=== PATIENT | male | born 1965 | race Caucasian/White ===

== ENCOUNTER 2018-09-03 08:12 | Emergency (ER) | payer OTHER ==
[~2018-09-03] VITALS: Ht 157.5 cm; Wt 113.4 kg
[2018-09-03] MEDS ORDERED: LACTATED RINGERS 1,000 ML IV ONE (08:22)
[2018-09-03] MEDS ORDERED: KETOROLAC 30 MG/ML VIAL IVP ONE (08:30)
--- NOTE | 2018-09-03 08:32 | ED Abdominal Pain ---
General Stated Complaint: R SIDE LOWER ABD PAIN Source of Information: Patient, Spouse Exam Limitations: No Limitations History of Present Illness Date Seen by Provider: Sep 03, 2018 Time Seen by Provider: 08:14 Initial Comments The patient presents to the ER by private conveyance with chief complaint of 45 minutes of pain in his right lower quadrant abdomen that radiates towards the midline and umbilicus. He had a similar pain to this yesterday lasted for about half an hour in the morning and went away spontaneously. He is not taking anything for the pain today. His last oral intake was at 7:15, one hour ago. He cannot have a bowel movement today which was is normal. His seems to think he did have a bowel movement yesterday but he does not recall that being the case. No diarrhea or recent black tarry stools. No history of colonoscopy. He has had a umbilical hernia repair historically. No fevers chills. He has had some nausea but no vomiting. He does have a history of kidney stones but is not having any back pain. He's not had any rash itching or burning on the skin. No recent trauma. No dysuria or dyspareunia. 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 No history of hypertension, hypothyroidism, coronary disease. He does have hyperlipidemia. Allergies and Home Medications Allergies Coded Allergies: morphine (Verified Adverse Reaction, Unknown, N/V, 09/03/18) Patient Home Medication List Home Medication List Reviewed: Yes Review of Systems Review of Systems Constitutional: No chills, No fever, No malaise, No weakness EENTM: No Blurred Vision, No Double Vision Respiratory: Denies Cough, Denies Shortness of Air Cardiovascular: Denies Chest Pain, Denies Edema, Denies Lightheadedness Gastrointestinal: See HPI; Denies Abdomen Distended; Abdominal Pain; Denies Constipated, Denies Diarrhea; Nausea; Denies Poor Appetite, Denies Poor Fluid Intake, Denies Vomiting Genitourinary: Denies Burning, Denies Discharge Musculoskeletal: No back pain, No joint pain Past Chlkdrj-Kbmtej-Trlpok Hx Patient Social History Alcohol Use: Denies Use Recreational Drug Use: No Smoking Status: Never a Smoker Recent Foreign Travel: No Contact w/Someone Who Travel: No Physical Exam Vital Signs Vital Signs - First Documented 09/03/18 08:44 Temp 95.9 Pulse 67 Resp 18 B/P (MAP) 170/111 (130) Pulse Ox 95 O2 Delivery Room Air Capillary Refill : Height/Weight/BMI Height: '" Weight: lbs. oz. kg; BMI Method: General Appearance: WD/WN, mild distress HEENT: PERRL/EOMI, normal ENT inspection, pharynx normal Respiratory: lungs clear, normal breath sounds, no respiratory distress, no accessory muscle use Cardiovascular: normal peripheral pulses, regular rate, rhythm, no edema Peripheral Pulses: 2+ Radial Pulses (R), 2+ Radial Pulses (L) Gastrointestinal: soft, abnormal bowel sounds (quiescent), guarding (right lower quadrant); No rebound; tenderness (right lower quadrant over McBurney's point. Negative for Ochoa sign. Negative for Rovsing sign. Positive psoas sign) Progress/Results/Core Measures Results/Orders Lab Results Laboratory Tests Test 09/03/18 08:25 09/03/18 08:55 Range/Units White Blood Count 6.9 4.3-11.0 10^3/uL Red Blood Count 6.05 H 4.35-5.85 10^6/uL Hemoglobin 17.9 H 13.3-17.7 G/DL Hematocrit 50 40-54 % Mean Corpuscular Volume 83 80-99 FL Mean Corpuscular Hemoglobin 30 25-34 PG Mean Corpuscular Hemoglobin Concent 36 32-36 G/DL Red Cell Distribution Width 14.3 10.0-14.5 % Platelet Count 161 130-400 10^3/uL Mean Platelet Volume 11.0 H 7.4-10.4 FL Neutrophils (%) (Auto) 70 42-75 % Lymphocytes (%) (Auto) 18 12-44 % Monocytes (%) (Auto) 8 0-12 % Eosinophils (%) (Auto) 3 0-10 % Basophils (%) (Auto) 0 0-10 % Neutrophils # (Auto) 4.8 1.8-7.8 X 10^3 Lymphocytes # (Auto) 1.2 1.0-4.0 X 10^3 Monocytes # (Auto) 0.6 0.0-1.0 X 10^3 Eosinophils # (Auto) 0.2 0.0-0.3 10^3/uL Basophils # (Auto) 0.0 0.0-0.1 10^3/uL Sodium Level 139 135-145 MMOL/L Potassium Level 4.0 3.6-5.0 MMOL/L Chloride Level 107 98-107 MMOL/L Carbon Dioxide Level 23 21-32 MMOL/L Anion Gap 9 5-14 MMOL/L Blood Urea Nitrogen 14 7-18 MG/DL Creatinine 1.37 H 0.60-1.30 MG/DL Estimat Glomerular Filtration Rate 54 BUN/Creatinine Ratio 10 Glucose Level 125 H 70-105 MG/DL Calcium Level 10.6 H 8.5-10.1 MG/DL Corrected Calcium 10.4 H 8.5-10.1 MG/DL Total Bilirubin 1.2 H 0.1-1.0 MG/DL Aspartate Amino Transf (AST/SGOT) 66 H 5-34 U/L Alanine Aminotransferase (ALT/SGPT) 73 H 0-55 U/L Alkaline Phosphatase 92 40-136 U/L Total Protein 6.5 6.4-8.2 GM/DL Albumin 4.3 3.2-4.5 GM/DL My Orders Orders - REECE SOL Ct Abd/Pelv W (Appendicitis) (09/03/18 08:22) Cbc With Automated Diff (09/03/18 08:22) Comprehensive Metabolic Panel (09/03/18 08:22) Drug Screen Stat (Urine) (09/03/18 08:22) Ua Culture If Indicated (09/03/18 08:22) Blood Culture (09/03/18 08:22) Saline Lock/Iv-Start (09/03/18 08:22) Lactated Ringers (Lr 1000 Ml Iv Solution (09/03/18 08:22) Lactic Acid Analyzer (09/03/18 08:22) Ketorolac Injection (Toradol Injection) (09/03/18 08:30) Iohexol Injection (Omnipaque 350 Mg/Ml 1 (09/03/18 08:45) Contrast Received (Contrast Received) (09/03/18 08:45) Ns (Ivpb) (Sodium Chloride 0.9% Ivpb Bag (09/03/18 08:45) Ceftriaxone For Iv Use (Rocephin For I (09/03/18 09:00) Medications Given in ED Current Medications Medications Dose Ordered Sig/Henrietta Route Start Time Stop Time Status Last Admin Dose Admin Iohexol 100 ml ONCE ONCE IV 09/03/18 08:45 09/03/18 08:46 DC 09/03/18 08:44 100 ML Lactated Ringer's 1,000 ml @ 0 mls/hr Q0M ONCE IV 09/03/18 08:22 09/03/18 08:26 DC 09/03/18 08:32 1,000 MLS/HR Sodium Chloride 100 ml ONCE ONCE IV 09/03/18 08:45 09/03/18 08:46 DC 09/03/18 08:44 80 ML Vital Signs/I&O 09/03/18 08:44 Temp 95.9 Pulse 67 Resp 18 B/P (MAP) 170/111 (130) Pulse Ox 95 O2 Delivery Room Air Progress Progress Note : Time: 08:32 Progress Note Plan to give him a liter of LR, Toradol. He says his nausea is resolved and doesn't want anything for that right now. We'll get a CT of his abdomen as well as blood. We'll go ahead and obtain blood cultures. Appendix versus bowel obstruction versus diverticulitis versus lymphadenitis versus kidney stone versus other. Diagnostic Imaging Diagonstic Imaging: CT (with contrast) Plain Films/CT/US/NM/MRI: abdomen, pelvis Comments NAME: [facility] REC#: [id number] PT STATUS: REG ER : 1965 PHYSICIAN: REECE SOL MD ADMIT DATE: 09/03/18/ER Draft Date of Exam:09/03/18 CT ABD/PELV W (APPENDICITIS) PROCEDURE: CT abdomen and pelvis with contrast, rule out appendicitis. TECHNIQUE: Multiple contiguous axial images were obtained through the abdomen and pelvis after the administration of intravenous contrast. INDICATION: Periumbilical pain. COMPARISON: No prior studies are available for comparison. FINDINGS: The lung bases are clear. The liver demonstrates mild generalized low density consistent with hepatic steatosis. No discrete liver mass is identified. The gallbladder is unremarkable. No biliary duct dilatation is seen. The pancreas and spleen are unremarkable. No adrenal mass is detected. The left kidney does contain a nonobstructing calculus in the mid region measuring 4 mm in size. No hydronephrosis is seen. There is mild right-sided hydronephrosis. There is a 4 mm calculus in the proximal right ureter just beyond the UPJ. The remainder of the right ureter is normal in caliber. No bladder calculi are seen. The aorta is non-aneurysmal. The appendix is unremarkable. The bowel loops are normal in caliber. No obstruction is seen. There is no ascites. The ascending colon and cecum are more midline in the abdomen. No abdominal or pelvic lymphadenopathy is seen. IMPRESSION: 1. Hepatic steatosis. 2. Nonobstructing left renal calculus. There is also a 4 mm calculus in the proximal right ureter producing mild hydroureteronephrosis. 3. No CT evidence of acute appendicitis. Dictated on workstation # [id number] Dict: 09/03/18 [id number] Trans: 09/03/18 0904 JEANINE [id number] Interpreted by: ADDIE PAYTON MD Electronically signed by: Reviewed: Reviewed by Me Departure Impression Primary Impression: Calculus of proximal right ureter Disposition: HOME, SELF-CARE Condition: Stable Departure-Patient Inst. Decision time for Depature: 09:15 Referrals: EDER LIU MD (PCP) Primary Care Physician RACHEL PATEL MD Patient Instructions: Kidney Stones (DC) Add. Discharge Instructions: Drink lots of fluids. Caffeine is encouraged. Use the Flomax daily until you pass the stone. Strain all your urine to see if you can note the time that you passed the stone. Follow-up with Dr. Patel, urology outpatient by calling his clinic. Is not unusual to have some blood-tinged urine or pain up to a day or 2 after passing a stone. If you're having pain you can use Tylenol and ibuprofen 800 mg every 8 hours. If you have breakthrough pain you can use 1-2 tablets of hydrocodone every 6 hours but will cause constipation and drowsiness. Start taking the Keflex tomorrow twice a day for the next week to cover for a bladder infection. Scripts Tamsulosin HCl (Flomax) 0.4 Mg Cap 0.4 MG PO DAILY for 7 Days, #7 CAP 0 Refills Prov: REECE SOL 09/03/18 Cephalexin (Cephalexin) 500 Mg Tablet 500 MG PO BID for 7 Days, #14 TAB 0 Refills Prov: REECE SOL 09/03/18 Hydrocodone Bit/Acetaminophen (Hydrocodone/Acetaminophen 5/325mg Tablet) 1 Tab Tab 1-2 EACH PO Q6H for PAIN-MODERATE MDD 10, #12 TAB 0 Refills Prov: REECE SOL 09/03/18 Ondansetron (Ondansetron Odt) 4 Mg Tab.rapdis 4 MG PO Q6H PRN for NAUSEA/VOMITING, #8 TAB 0 Refills Prov: REECE SOL 09/03/18 Work/School Note: Work Release Form Date Seen in the Emergency Department: Sep 03, 2018 Return to Work: Sep 03, 2018 Restrictions: No Restrictions Copy Copies To 1: RACHEL PATEL MD, TITUS J Sep 03, 2018 08:32
--- NOTE | 2018-09-03 08:33 | NUR ---
Pt reports pain has subsided at this time and does not want toradol at this time. Will continue to monitor.
[2018-09-03 08:37] LABS: BASOPHILS % (AUTO) 0 % (0-10); EOSINOPHILS # (AUTO) 0.2 10^3/uL (0.0-0.3); EOSINOPHILS % (AUTO) 3 % (0-10); HEMATOCRIT 50 % (40-54); HEMOGLOBIN 17.9 G/DL (13.3-17.7); LYMPHOCYTES # (AUTO) 1.2 X 10^3 (1.0-4.0); LYMPHOCYTES % (AUTO) 18 % (12-44); MEAN CORPUSCULAR HEMOGLOBIN 30 PG (25-34); MEAN CORPUSCULAR HGB CONC 36 G/DL (32-36); MEAN CORPUSCULAR VOLUME 83 FL (80-99); MONOCYTES # (AUTO) 0.6 X 10^3 (0.0-1.0); MONOCYTES % (AUTO) 8 % (0-12); NEUTROPHILS # (AUTO) 4.8 X 10^3 (1.8-7.8); NEUTROPHILS % (AUTO) 70 % (42-75); PLATELET COUNT 161 10^3/uL (130-400); RED CELL DISTRIBUTION WIDTH 14.3 % (10.0-14.5); WHITE BLOOD COUNT 6.9 10^3/uL (4.3-11.0)
[2018-09-03] MEDS ORDERED: IOHEXOL 350 MG/ML 100 ML (OMNIPAQUE 350) VIAL IV ONE (08:45)
[2018-09-03] MEDS ORDERED: RECEIVED CONTRAST (Hold Metformin) IV SCH (08:45)
[2018-09-03] MEDS ORDERED: NS 100 ML (IVPB) BAG IV ONE (08:45)
[2018-09-03 08:55] LABS: ALBUMIN 4.3 GM/DL (3.2-4.5); BILIRUBIN,TOTAL 1.2 MG/DL (0.1-1.0); CALCIUM 10.6 MG/DL (8.5-10.1); CREATININE SERUM 1.37 MG/DL (0.60-1.30); TOTAL PROTEIN 6.5 GM/DL (6.4-8.2)
[2018-09-03] MEDS ORDERED: cefTRIAXone FOR IV USE 1,000 MG in WATER (STERILE) FOR INJECTION 10 ML IV ONE (09:00)
[2018-09-03 09:03] LABS: BILIRUBIN,URINE NEGATIVE (NEGATIVE); CLARITY,URINE CLEAR; COLOR,URINE YELLOW; GLUCOSE, URINE (UA) NEGATIVE (NEGATIVE); KETONES,URINE NEGATIVE (NEGATIVE); LEUKOCYTE ESTERASE ,URINE 1+ (NEGATIVE); NITRITE,URINE NEGATIVE (NEGATIVE); PH,URINE 5 (5-9); PROTEIN,URINE 2+ (NEGATIVE); UROBILINOGEN,URINE 1 MG/DL (NORMAL)
--- NOTE | 2018-09-03 09:04 | Diagnostic Imaging Report ---
PROCEDURE: CT abdomen and pelvis with contrast, rule out appendicitis. TECHNIQUE: Multiple contiguous axial images were obtained through the abdomen and pelvis after the administration of intravenous contrast. INDICATION: Periumbilical pain. COMPARISON: No prior studies are available for comparison. FINDINGS: The lung bases are clear. The liver demonstrates mild generalized low density consistent with hepatic steatosis. No discrete liver mass is identified. The gallbladder is unremarkable. No biliary duct dilatation is seen. The pancreas and spleen are unremarkable. No adrenal mass is detected. The left kidney does contain a nonobstructing calculus in the mid region measuring 4 mm in size. No hydronephrosis is seen. There is mild right-sided hydronephrosis. There is a 4 mm calculus in the proximal right ureter just beyond the UPJ. The remainder of the right ureter is normal in caliber. No bladder calculi are seen. The aorta is non-aneurysmal. The appendix is unremarkable. The bowel loops are normal in caliber. No obstruction is seen. There is no ascites. The ascending colon and cecum are more midline in the abdomen. No abdominal or pelvic lymphadenopathy is seen. IMPRESSION: 1. Hepatic steatosis. 2. Nonobstructing left renal calculus. There is also a 4 mm calculus in the proximal right ureter producing mild hydroureteronephrosis. 3. No CT evidence of acute appendicitis. Dictated by: Dictated on workstation # [id number]
--- NOTE | 2018-09-03 09:05 | NUR ---
Blood cultures cancelled by Dr. Donald.
[2018-09-03] MEDS ORDERED: ONDA4TAB11 PO (09:12)
[2018-09-03] MEDS ORDERED: CEPH500T PO (09:12)
[2018-09-03] MEDS ORDERED: ACHD5005 PO (09:12)
[2018-09-03] MEDS ORDERED: TAMS0.4C98 PO (09:12)
[2018-09-03 09:18] LABS: AMPHETAMINE SCREEN, URINE NEGATIVE (NEGATIVE); BARBITURATE SCREEN URINE NEGATIVE (NEGATIVE); BENZODIAZEPINES SCREEN URINE NEGATIVE (NEGATIVE); CANNABINOID SCREEN, URINE NEGATIVE (NEGATIVE); COCAINE SCREEN URINE NEGATIVE (NEGATIVE); METHADONE STAT NEGATIVE (NEGATIVE); METHAMPHETAMINE SCREEN URINE S POSITIVE (NEGATIVE); OPIATE SCREEN URINE NEGATIVE (NEGATIVE); OXYCODONE STAT NEGATIVE (NEGATIVE); PROPOXYPHENE STAT NEGATIVE (NEGATIVE); TRICYCLIC ANTIDEPRESSANTS SCRE NEGATIVE (NEGATIVE)
[2018-09-03 09:24] LABS: BACTERIA,URINE TRACE /HPF; CALCIUM OXALATE CRYSTALS,UR RARE /LPF; RBC,URINE >100 /HPF; SQUAMOUS EPITHELIAL CELL,UR 0-2 /HPF; WBC,URINE 0-2 /HPF
[2018-09-03 09:55] VITALS: BP 162/105
== END 2018-09-03 09:50 | disposition home or self-care (01) ==
LOC: EDUNIT# 08:12 → ER 08:13
DX: N13.2 Hydronephrosis with renal and ureteral calculous obstruction (principal); Z88.5 Allergy status to narcotic agent; Z87.442 Personal history of urinary calculi
CPT/HCPCS: 36415; 74177; 80053; 80306; 81000; 85025

== ENCOUNTER → 2018-09-04 | Outpatient (CLI) | payer OTHER ==
[~2018-09-04] MED LIST: ACHD5005 PO; CEPH500T PO; ONDA4TAB11 PO; TAMS0.4C98 PO
--- NOTE | 2018-09-04 15:53 | Diagnostic Imaging Report ---
EXAMINATION: Supine abdomen at 02:40 p.m. INDICATION: Right-sided pain. FINDINGS: Two supine views were obtained. The CT abdomen/pelvis exam of 09/03/2018 noted a 4 mm calculus in the proximal right ureter producing mild hydroureteronephrosis. That finding is again visualized and does not seem to have changed significantly in position. The 4 mm nonobstructive calculus within the left kidney noted previously is also again visualized and no different. There is no other pathological calcification evident. The overall appearance of the abdomen itself is otherwise unchanged. IMPRESSION: 1. The obstructive calculus within the right ureter noted on the prior exam is again visualized and does not appear to have changed significantly in position. 2. The nonobstructive calculus within the left kidney seen previously is also stable. Dictated by: Dictated on workstation # [id number]
== END ==
LOC: RAD 14:32
PROVIDERS: ATTEND Urology
DX: N20.2 Calculus of kidney with calculus of ureter (principal)
CPT/HCPCS: 74018

== ENCOUNTER 2018-09-09 05:38 | Outpatient (CLI) | payer OTHER ==
[~2018-09-09] VITALS: Ht 188 cm; Wt 113.4 kg
[2018-09-09] MEDS ORDERED: ALLO300T2 PO (12:05)
[2018-09-09] MEDS ORDERED: FINA1TAB PO (12:05)
[2018-09-10] MEDS ORDERED: PHEN-640 PO (12:55)
[2018-09-10] MEDS ORDERED: CIPR-225 PO (12:55)
== END 2018-09-09 12:19 ==
LOC: PREOP 05:38
PROVIDERS: ATTEND Urology
DX: Z01.818 Encounter for other preprocedural examination (principal)

== ENCOUNTER 2018-09-10 07:42 | Day surgery (SDC) | payer OTHER ==
[~2018-09-10] VITALS: Ht 188 cm; Wt 113.4 kg
[~2018-09-10 07:42] MED LIST changes: +ALLO300T2 PO; +FINA1TAB PO
[2018-09-10 08:00] VITALS: BP 128/84
[2018-09-10] MEDS ORDERED: cefTRIAXone FOR IV USE 1,000 MG in WATER (STERILE) FOR INJECTION 10 ML IV ONE (08:15)
--- NOTE | 2018-09-10 08:31 | Progress Note-Pre Operative ---
Pre-Operative Progress Note H&P Reviewed The H&P was reviewed, patient examined and no changes noted. Date Seen by Provider: Sep 10, 2018 Time Seen by Provider: 08:30 Date H&P Reviewed: Sep 10, 2018 Time H&P Reviewed: 08:30 Pre-Operative Diagnosis: RT URETERAL AND LT RENAL STONES RACHEL PATEL MD Sep 10, 2018 08:31
[2018-09-10] MEDS ORDERED: LIDOCAINE PF 2% 5 ML (XYLOCAINE) VIAL ONE (08:38)
[2018-09-10] MEDS ORDERED: proPOfol 200 MG/20 ML (DIPRIVAN) VIAL IV ONE ×2 (08:38→11:28)
[2018-09-10] MEDS ORDERED: MIDAZOLAM 2 MG/2 ML (VERSED) VIAL ONE (08:38)
[2018-09-10] MEDS ORDERED: fentaNYL INJECTION 100 MCG/2 ML AMP ONE (08:38)
[2018-09-10] MEDS ORDERED: DEXAMETHASONE 10 MG/ML (DECADRON) 1 ML VIAL ONE (08:38)
[2018-09-10] MEDS ORDERED: ONDANSETRON 4 MG/2 ML (SDV) Z0FRAN ONE ×2 (08:38→11:03)
[2018-09-10] MEDS ORDERED: FAMOTIDINE 20MG/2ML IV (PEPCID) ONE (08:40)
[2018-09-10] MEDS ORDERED: CATHETER FLUSH 10 ML SYR IV PRN (08:45)
[2018-09-10] MEDS ORDERED: SEVOFLURANE (ULTANE) 15 ML INHAL SOLN ONE ×4 (08:46→11:03)
--- NOTE | 2018-09-10 09:40 | Diagnostic Imaging Report ---
EXAMINATION: Supine abdomen at 812 hours. INDICATION: Nephrolithiasis. FINDINGS: The prior exam of 09/04/2018 noted a small obstructive calculus in the midportion of the right ureter. There is a similar-appearing density in this same region on this exam. The nonobstructive calculus overlying the inferior pole of the left kidney seen previously is unchanged. No new abnormality has developed. IMPRESSION: The obstructive calculus within the right ureter seen previously still appears to be present and does not appear to have changed significantly in position. Dictated by: Dictated on workstation # [id number]
[2018-09-10] MEDS ORDERED: GLYCOPYRROLATE 0.2 MG/ML (ROBINUL) 2 ML VIAL ONE (11:21)
[2018-09-10] MEDS ORDERED: NEOSTIGMINE 1 MG/ML 5 ML SYRINGE ONE (11:21)
[2018-09-10] MEDS ORDERED: ROCURONIUM 10 MG/ML 5 ML SYRINGE IV ONE (11:23)
[2018-09-10] MEDS ORDERED: fentaNYL INJECTION 100 MCG/2 ML AMP IVP ONE (11:45)
[2018-09-10] MEDS ORDERED: ONDANSETRON 4 MG/2 ML (SDV) Z0FRAN IVP PRN (11:45)
[2018-09-10] MEDS ORDERED: PROMETHAZINE INJ 25 MG/ML (PHENERGAN) AMP IVP ONE (11:45)
--- NOTE | 2018-09-10 11:53 | Progress Note-Post Operative ---
Post-Operative Progess Note Surgeon (s)/Registered Nurse Renal (s) Surgeon RACHEL PATEL MD Registered Nurse Renal: NONE Pre-Operative Diagnosis RT URETERAL AND LT RENAL STONES Post-Operative Diagnosis SAME Procedure & Operative Findings Date of Procedure 09/10/18 Procedure Performed/Findings RT URETEROSCOPY, STENT, RETROGRADE UROGRAM, AND RT ESWL Anesthesia Type GENERAL Estimated Blood Loss Estimated blood loss (mL): NONE Specimens/Packing Specimens Removed NONE Packing: NONE RACHEL PATEL MD Sep 10, 2018 11:53
--- NOTE | 2018-09-10 11:55 | Discharge Inst-Urology ---
Discharge Inst-Urology Discharge Medications New, Converted, or Re-newed RX: RX on Chart Patient Instructions/Follow Up Plan Please make appointment to been seen in office in 2 weeks. KUB prior to it KUB on way home Post ESWL instructions Increase oral fluids for 48 hours and then as needed. Diet and Activity as tolerated. If questions or concerns contact your physician Or seek help at emergency department. RACHEL PATEL MD Sep 10, 2018 11:55
[2018-09-10 12:40] VITALS: BP 172/87
[2018-09-10] MEDS ORDERED: CIPR-225 PO (12:55)
[2018-09-10] MEDS ORDERED: PHEN-640 PO (12:55)
[2018-09-10 13:10] VITALS: BP 123/73
[2018-09-10 13:40] VITALS: BP 129/72
[2018-09-10 14:15] VITALS: BP 129/72
--- NOTE | 2018-09-10 14:46 | Diagnostic Imaging Report ---
EXAMINATION: Supine abdomen at 2:02 p.m. INDICATION: Post ESWL. FINDINGS: The exam performed earlier today suggested that there is still a small calcification overlying the right ureter. That finding is no longer visualized. The calcification overlying the inferior pole of the left kidney seen previously is unchanged. No new abnormality has developed otherwise. IMPRESSION: The calcification overlying the mid portion of the right kidney seen previously is not identified on this study. Dictated by: Dictated on workstation # [id number]
[2018-09-10] MEDS ORDERED: LACTATED RINGERS 1,000 ML IV PRN (14:47)
--- NOTE | 2018-09-10 14:49 | Anesthesia-General Post-Op ---
General Patient Condition Mental Status/LOC: Same as Preop Cardiovascular: Satisfactory Nausea/Vomiting: Absent Respiratory: Satisfactory Pain: Controlled Complications: Absent Post Op Complications Complications None Follow Up Care/Instructions Patient Instructions None needed. Anesthesia/Patient Condition Patient Condition Patient is doing well, no complaints, stable vital signs, no apparent adverse anesthesia problems. No complications reported per nursing. ANTIONETTE ZALDIVAR CRNA Sep 10, 2018 14:49
--- NOTE | 2018-09-10 18:48 | OPERATIVE REPORT ---
DATE OF SERVICE: 09/10/2018 PREOPERATIVE DIAGNOSES: 1. Right symptomatic ureteral stone with no progression and obstruction. 2. Left renal stone. POSTOPERATIVE DIAGNOSES: 1. Right symptomatic ureteral stone with no progression and obstruction. 2. Left renal stone. OPERATION PERFORMED: Right ureteroscopy, retrograde urogram, insertion of stent and ESWL. SURGEON: Jermaine Patel MD ANESTHESIA: General. COMPLICATIONS: None. DESCRIPTION OF PROCEDURE: The patient with right proximal ureteral stone and pain and obstruction with failure to pass spontaneously and the left renal asymptomatic stone. Under satisfactory general anesthesia, the patient in lithotomy position in the cystoscopy suite, genitalia were prepped and draped in the usual sterile fashion. Cystoscope was introduced in the bladder. The urethra was normal. The prostate was normal, not enlarged, but had a median bar. The bladder was entered. There were some trabeculations. Ureteric orifices normal except with sluggish efflux on the right side. Using the foroblique lens, I dilated the right ureteral orifice intramural portion to accommodate a 6.9 Palestinian semi-rigid ureteroscope; however, I could not go all the way to the proximal ureteral stone. This continued further attempt. I passed a ureteral catheter and because of the size of the stone that was not very well visualized by plain x-ray. I elected to do some contrast studies, so I passed a ureteral catheter to the stone. I injected some contrast and I could see the stone going back into the renal pelvis releasing the obstruction. I could see the stone as a filling defect in the right renal pelvis. I passed the ureteral catheter all the way to the UPJ. Then, I inserted a Xie catheter after removing the cystoscope, secured both catheters together, moved the patient to the ESWL table in a supine position. We localized the stone as a filling defect under fluoroscopy in the renal pelvis and delivered 2000 shocks at kV of 4. We could not see the filling defect anymore. We took precaution to make sure there is no other filling defect or obstruction along the ureter. I backed up the ureteral catheter for support. There were no radiopaque stones seen along the course of the ureter, especially at the previous site. I injected contrast. There was no filling defect anywhere in the ureter as well as the pelvis of the kidney. There was complete emptying and good peristalsis of the ureter as well as the renal pelvis. The system was emptying nicely. There was no sign of obstruction anymore. The catheters were then removed. The patient tolerated the procedure and anesthesia well and was sent to recovery room in stable condition after receiving 30 mg Toradol and 40 mg of Lasix IV. We will discuss with the patient later on the left renal stone if he wants to do it on the elective basis and after we consult with his insurance. Job ID: [id number] DocumentID: [id number] Dictated Date: 09/10/2018 12:00:22 Careers Counsellor Date: 09/10/2018 15:39:05 Dictated By: JERMAINE PATEL MD
== END 2018-09-10 14:20 | disposition home or self-care (01) ==
LOC: SDC 07:42
PROVIDERS: ATTEND Urology
DX: N20.1 Calculus of ureter (principal); N20.0 Calculus of kidney; Z11.2 Encounter for screening for other bacterial diseases; M10.9 Gout, unspecified; N40.0 Benign prostatic hyperplasia without lower urinary tract symptoms; L65.9 Nonscarring hair loss, unspecified; Z79.899 Other long term (current) drug therapy
CPT/HCPCS: 74018; 87081

== ENCOUNTER → 2018-09-24 | Outpatient (CLI) | payer OTHER ==
[~2018-09-24] MED LIST changes: +CIPR-225 PO; +PHEN-640 PO
--- NOTE | 2018-09-24 17:40 | Diagnostic Imaging Report ---
INDICATION: History of ureteral stone, post extracorporeal shockwave lithotripsy. TECHNIQUE: Two supine views of the abdomen at 03:04 p.m. CORRELATION STUDY: 09/10/2018. FINDINGS: Small calcification, 3 mm in size projects over the left renal silhouette approximately the 12th rib. Faint calcification interposed between the 11th and 12th rib may reflect a stone over the mid right kidney. No definitive calcification along the expected course of either ureter. Overlying bowel gas pattern unremarkable without evidence for obstruction. IMPRESSION: 1. No appreciable change in the left renal stone. Question of small right renal stone. No definitive calcification along the expected course of the ureters. Dictated by: Dictated on workstation # [id number]
== END ==
LOC: RAD 14:47
PROVIDERS: ATTEND Urology
DX: N20.2 Calculus of kidney with calculus of ureter (principal); Z98.890 Other specified postprocedural states
CPT/HCPCS: 74018

== ENCOUNTER → 2018-09-24 | Outpatient (CLI) | payer OTHER | LOC: LAB 15:51 | PROVIDERS: ATTEND Urology | DX: N20.2 Calculus of kidney with calculus of ureter (principal) ==

== ENCOUNTER → 2018-10-23 | Outpatient (CLI) | payer BC, OTHER ==
--- NOTE | 2018-10-23 19:31 | Diagnostic Imaging Report ---
INDICATION: Left flank pain. COMPARISON: Comparison made with prior examination from 09/24/2018. FINDINGS: The previously seen calcification projected over the lateral aspect of the left kidney is no longer appreciated. No new calcifications are appreciated. Bowel gas pattern is nonspecific. IMPRESSION: No definite residual renal calculi. Dictated by: Dictated on workstation # [id number]
--- NOTE | 2018-10-23 19:39 | Diagnostic Imaging Report ---
PROCEDURE: CT abdomen and pelvis without contrast. TECHNIQUE: Multiple contiguous axial images were obtained through the abdomen and pelvis without the use of intravenous contrast. Auto Exposure Controls were utilized during the CT exam to meet ALARA standards for radiation dose reduction. INDICATION: Left flank pain. COMPARISON: Comparison made with prior examination from 09/03/2018. FINDINGS: The heart size is normal. The lung bases are clear. The liver is normal in size without focal lesions. Gallbladder is unremarkable. There is no biliary ductal dilatation. Spleen is normal. The pancreas and adrenal glands are unremarkable. There is mild right hydronephrosis secondary to a 5 mm stone just below the right UPJ. There is a 4.5 mm stone in the distal left ureter a few centimeters proximal to the left UVJ. The aorta is nonaneurysmal. Bowel gas pattern is nonspecific. There is no free air. There are no focal inflammatory changes. There is no pelvic mass or adenopathy. The osseous structures are unremarkable. IMPRESSION: Bilateral ureteral stones. There is mild right hydronephrosis. There does not appear to be significant hydronephrosis on the left. Findings were conveyed directly to Dr. Gerber via telephone. Dictated by: Dictated on workstation # [id number]
== END ==
LOC: RAD 14:58
PROVIDERS: ATTEND Urology
DX: N13.2 Hydronephrosis with renal and ureteral calculous obstruction (principal)
CPT/HCPCS: 74018; 74176

== ENCOUNTER → 2018-10-24 | Outpatient (CLI) | payer BC ==
--- NOTE | 2018-10-24 14:43 | Diagnostic Imaging Report ---
INDICATION: Nephrolithiasis. COMPARISON: Comparison made with prior examination 10/23/2018. FINDINGS: The lung bases are clear. Bowel gas pattern is nonspecific. The recently described ureteral stones are not appreciated by plain film radiographs. No definite abnormal calcifications are appreciated. IMPRESSION: No definite abnormal calcifications appreciated. The previously described bilateral ureteral stones likely are not visible on plain film radiographs. Dictated by: Dictated on workstation # [id number]
== END ==
LOC: RAD 09:07
PROVIDERS: ATTEND Urology
DX: N20.0 Calculus of kidney (principal)
CPT/HCPCS: 74018

== ENCOUNTER → 2018-11-04 | Outpatient (CLI) | payer BC ==
--- NOTE | 2018-11-04 16:47 | Diagnostic Imaging Report ---
INDICATION: Bilateral ureteral stones. TIME OF EXAM: 04:29 p.m. Comparison is made with prior radiograph from 10/24/2018. There is a small calcific density lying just inferior to the right transverse process of L2 measuring 3 mm. This may represent a ureteral calculus. No other suspicious calcific densities along the course of ureters is seen. Pelvic calcifications are stable and likely represent phleboliths. Bowel gas pattern is unremarkable. IMPRESSION: 3 mm right abdominal calcification, perhaps ureteric. Study is otherwise unremarkable. Dictated by: Dictated on workstation # [id number]
== END ==
LOC: RAD 16:08
PROVIDERS: ATTEND Urology
DX: N20.1 Calculus of ureter (principal)
CPT/HCPCS: 74018

== ENCOUNTER 2018-11-10 09:09 | Outpatient (CLI) | payer BC ==
[~2018-11-10] VITALS: Ht 188 cm; Wt 113.4 kg
== END 2018-11-10 15:56 | disposition home or self-care (01) ==
LOC: PREOP 09:09
PROVIDERS: ATTEND Surgery
DX: Z01.818 Encounter for other preprocedural examination (principal)

== ENCOUNTER 2018-11-12 11:17 | Day surgery (SDC) | payer BC ==
[~2018-11-12] VITALS: Ht 188 cm; Wt 113.4 kg
--- OUTSIDE RECORDS SUMMARY | 2018-11-12 11:22 | XMS REPORT | Continuity of Care Document ---
Author Organization Unknown Address Unknown Allergies Active Description Code Type Severity Reaction Onset Reported/Identified Relationship to Patient Clinical Status Yes morphine [id number] Drug Allergy Unknown N/V 09/03/2018 Yes No Known Drug Allergies [id number] Drug Allergy Unknown N/A 09/09/2018 Medications There is no data. Problems Date Dx Coded Attending Type Code Diagnosis Diagnosed By 09/03/2018 REECE SOL MD, Ot N13.2 HYDRONEPHROSIS WITH RENAL AND URETERAL C 09/03/2018 REECE SOL MD Ot R10.31 RIGHT LOWER QUADRANT PAIN 09/03/2018 REECE SOL MD Ot Z87.442 PERSONAL HISTORY OF URINARY CALCULI 09/03/2018 REECE SOL MD Ot Z88.5 ALLERGY STATUS TO NARCOTIC AGENT STATUS 09/05/2018 REECE SOL MD, Ot N13.2 HYDRONEPHROSIS WITH RENAL AND URETERAL C 09/05/2018 REECE SOL MD Ot R10.31 RIGHT LOWER QUADRANT PAIN 09/05/2018 REECE SOL MD Ot Z87.442 PERSONAL HISTORY OF URINARY CALCULI 09/05/2018 REECE SOL MD Ot Z88.5 ALLERGY STATUS TO NARCOTIC AGENT STATUS 09/10/2018 RACHEL PATEL MD Ot N20.2 CALCULUS OF KIDNEY WITH CALCULUS OF URET 09/10/2018 RACHEL PATEL MD Ot Z01.818 ENCOUNTER FOR OTHER PREPROCEDURAL EXAMIN 09/10/2018 RACHEL PATEL MD Ot L65.9 NONSCARRING HAIR LOSS, UNSPECIFIED 09/10/2018 RACHEL PATEL MD Ot M10.9 GOUT, UNSPECIFIED 09/10/2018 RACHEL PATEL MD Ot N20.0 CALCULUS OF KIDNEY 09/10/2018 RACHEL PATEL MD, Ot N20.1 CALCULUS OF URETER 09/10/2018 RACHEL PATEL MD A Ot N40.0 BENIGN PROSTATIC HYPERPLASIA WITHOUT LOW 09/10/2018 JORGE JOE, RACHEL Pritchett Ot Z11.2 ENCOUNTER FOR SCREENING FOR OTHER BACTER 09/10/2018 JORGE JOE, RACHEL Pritchett Ot Z79.899 OTHER COUNTERINTELLIGENCE ANALYST (CURRENT) DRUG THERAPY 09/12/2018 JORGE JOE, RACHEL Pritchett Ot L65.9 NONSCARRING HAIR LOSS, UNSPECIFIED 09/12/2018 JORGE JOE, RACHEL Pritchett Ot M10.9 GOUT, UNSPECIFIED 09/12/2018 JORGE JOE, RACHEL Pritchett Ot N20.0 CALCULUS OF KIDNEY 09/12/2018 JORGE JOE, RACHEL Pritchett Ot N20.1 CALCULUS OF URETER 09/12/2018 JORGE JOE, RACHEL Pritchett Ot N40.0 BENIGN PROSTATIC HYPERPLASIA WITHOUT LOW 09/12/2018 JORGE JOE, RACHEL Pritchett Ot Z11.2 ENCOUNTER FOR SCREENING FOR OTHER BACTER 09/12/2018 RACHEL PATEL MD Ot Z79.899 OTHER COUNTERINTELLIGENCE ANALYST (CURRENT) DRUG THERAPY 09/16/2018 RACHEL PATEL MD Ot L65.9 NONSCARRING HAIR LOSS, UNSPECIFIED 09/16/2018 JORGE JOE, RACHEL Pritchett Ot M10.9 GOUT, UNSPECIFIED 09/16/2018 JORGE JOE, RACHEL Pritchett Ot N20.0 CALCULUS OF KIDNEY 09/16/2018 JORGE JOE, RACHEL Pritchett Ot N20.1 CALCULUS OF URETER 09/16/2018 JORGE JOE, RACHEL Pritchett Ot N40.0 BENIGN PROSTATIC HYPERPLASIA WITHOUT LOW 09/16/2018 JORGE JOE, RACHEL Pritchett Ot Z11.2 ENCOUNTER FOR SCREENING FOR OTHER BACTER 09/16/2018 RACHEL PATEL MD Ot Z79.899 OTHER COUNTERINTELLIGENCE ANALYST (CURRENT) DRUG THERAPY 09/26/2018 JORGE JOE, RACHEL Pritchett Ot N20.2 CALCULUS OF KIDNEY WITH CALCULUS OF URET 10/01/2018 JORGE JOE, RACHEL Pritchett Ot N20.2 CALCULUS OF KIDNEY WITH CALCULUS OF URET 10/06/2018 JORGE JOE, RACHEL Pritchett Ot N20.2 CALCULUS OF KIDNEY WITH CALCULUS OF URET 10/21/2018 JORGE JOE, RACHEL A Ot N20.2 CALCULUS OF KIDNEY WITH CALCULUS OF URET 10/22/2018 JORGE JOE, RACHEL Pritchett Ot N20.0 CALCULUS OF KIDNEY 10/22/2018 JORGE JOE, RACHEL Pritchett Ot Z98.890 OTHER SPECIFIED POSTPROCEDURAL STATES 10/22/2018 JORGE JOE, RACHEL Pritchett Ot N20.2 CALCULUS OF KIDNEY WITH CALCULUS OF URET 10/22/2018 JORGE JOE, RACHEL Pritchett Ot N20.0 CALCULUS OF KIDNEY 10/22/2018 JORGE JOE, RACHEL Pritchett Ot Z98.890 OTHER SPECIFIED POSTPROCEDURAL STATES 10/22/2018 JORGE JOE, RACHEL Pritchett Ot N20.2 CALCULUS OF KIDNEY WITH CALCULUS OF URET 10/22/2018 JORGE JOE, RACHEL Pritchett Ot N20.0 CALCULUS OF KIDNEY 10/22/2018 JORGE JOE, RACHEL Pritchett Ot Z98.890 OTHER SPECIFIED POSTPROCEDURAL STATES 10/23/2018 RACHEL PATEL MD Ot N20.0 CALCULUS OF KIDNEY 10/23/2018 JORGE JOE, RACHEL Pritchett Ot Z98.890 OTHER SPECIFIED POSTPROCEDURAL STATES 10/23/2018 JORGE JOE, RACHEL Pritchett Ot N20.2 CALCULUS OF KIDNEY WITH CALCULUS OF URET 11/05/2018 RACHEL PATEL MD Ot N20.1 CALCULUS OF URETER Procedures There is no data. Results Test Result Range Complete blood count (CBC) with automated white blood cell (WBC) differential - 09/03/18 08:25 Blood leukocytes automated count (number/volume) 6.9 10*3/uL 4.3-11.0 Blood erythrocytes automated count (number/volume) 6.05 10*6/uL 4.35-5.85 Venous blood hemoglobin measurement (mass/volume) 17.9 g/dL 13.3-17.7 Blood hematocrit (volume fraction) 50 % 40-54 Automated erythrocyte mean corpuscular volume 83 [foz_us] 80-99 Automated erythrocyte mean corpuscular hemoglobin (mass per erythrocyte) 30 pg 25-34 Automated erythrocyte mean corpuscular hemoglobin concentration measurement ( mass/volume) 36 g/dL 32-36 Automated erythrocyte distribution width ratio 14.3 % 10.0-14.5 Automated blood platelet count (count/volume) 161 10*3/uL 130-400 Automated blood platelet mean volume measurement 11.0 [foz_us] 7.4-10.4 Automated blood neutrophils/100 leukocytes 70 % 42-75 Automated blood lymphocytes/100 leukocytes 18 % 12-44 Blood monocytes/100 leukocytes 8 % 0-12 Automated blood eosinophils/100 leukocytes 3 % 0-10 Automated blood basophils/100 leukocytes 0 % 0-10 Blood neutrophils automated count (number/volume) 4.8 10*3 1.8-7.8 Blood lymphocytes automated count (number/volume) 1.2 10*3 1.0-4.0 Blood monocytes automated count (number/volume) 0.6 10*3 0.0-1.0 Automated eosinophil count 0.2 10*3/uL 0.0-0.3 Automated blood basophil count (count/volume) 0.0 10*3/uL 0.0-0.1 Comprehensive metabolic panel - 09/03/18 08:25 Serum or plasma sodium measurement (moles/volume) 139 mmol/L 135-145 Serum or plasma potassium measurement (moles/volume) 4.0 mmol/L 3.6-5.0 Serum or plasma chloride measurement (moles/volume) 107 mmol/L 98-107 Carbon dioxide 23 mmol/L 21-32 Serum or plasma anion gap determination (moles/volume) 9 mmol/L 5-14 Serum or plasma urea nitrogen measurement (mass/volume) 14 mg/dL 7-18 Serum or plasma creatinine measurement (mass/volume) 1.37 mg/dL 0.60-1.30 Serum or plasma urea nitrogen/creatinine mass ratio 10 NRG Serum or plasma creatinine measurement with calculation of estimated glomerular filtration rate 54 NRG Serum or plasma glucose measurement (mass/volume) 125 mg/dL 70-105 Serum or plasma calcium measurement (mass/volume) 10.6 mg/dL 8.5-10.1 Serum or plasma total bilirubin measurement (mass/volume) 1.2 mg/dL 0.1-1.0 Serum or plasma alkaline phosphatase measurement (enzymatic activity/volume) 92 U/L 40-136 Serum or plasma aspartate aminotransferase measurement (enzymatic activity/ volume) 66 U/L 5-34 Serum or plasma alanine aminotransferase measurement (enzymatic activity/volume ) 73 U/L 0-55 Serum or plasma protein measurement (mass/volume) 6.5 g/dL 6.4-8.2 Serum or plasma albumin measurement (mass/volume) 4.3 g/dL 3.2-4.5 CALCIUM CORRECTED 10.4 mg/dL 8.5-10.1 Urine drug screening test - 09/03/18 08:55 Urine phencyclidine detection by screening method NEGATIVE NEGATIVE Urine benzodiazepines detection by screening method NEGATIVE NEGATIVE Urine cocaine detection NEGATIVE NEGATIVE Urine amphetamines detection by screening method NEGATIVE NEGATIVE Urine methamphetamine detection by screening method POSITIVE NEGATIVE Urine cannabinoids detection by screening method NEGATIVE NEGATIVE Urine opiates detection by screening method NEGATIVE NEGATIVE Urine barbiturates detection NEGATIVE NEGATIVE Screening urine tricyclic antidepressants detection NEGATIVE NEGATIVE Urine methadone detection by screening method NEGATIVE NEGATIVE Urine oxycodone detection NEGATIVE NEGATIVE Urine propoxyphene detection NEGATIVE NEGATIVE Complete urinalysis with reflex to culture - 09/03/18 08:55 Urine color determination YELLOW NRG Urine clarity determination CLEAR NRG Urine pH measurement by test strip 5 5-9 Specific gravity of urine by test strip 1.020 1.016- 1.022 Urine protein assay by test strip, semi-quantitative 2+ NEGATIVE Urine glucose detection by automated test strip NEGATIVE NEGATIVE Erythrocytes detection in urine sediment by light microscopy 5+ NEGATIVE Urine ketones detection by automated test strip NEGATIVE NEGATIVE Urine nitrite detection by test strip NEGATIVE NEGATIVE Urine total bilirubin detection by test strip NEGATIVE NEGATIVE Urine urobilinogen measurement by automated test strip (mass/volume) 1 mg/dL NORMAL Urine leukocyte esterase detection by dipstick 1+ NEGATIVE Automated urine sediment erythrocyte count by microscopy (number/high power field) > [HPF] NRG Automated urine sediment leukocyte count by microscopy (number/high power field ) [HPF] NRG Bacteria detection in urine sediment by light microscopy TRACE NRG Squamous epithelial cells detection in urine sediment by light microscopy 0-2 NRG Crystals detection in urine sediment by light microscopy PRESENT NRG Casts detection in urine sediment by light microscopy NONE NRG Mucus detection in urine sediment by light microscopy MODERATE NRG Complete urinalysis with reflex to culture NO NRG Calcium oxalate crystals detection in urine sediment by light microscopy RARE NRG Methicillin resistant Staphylococcus aureus (MRSA) screening culture - 08:20 Methicillin resistant Staphylococcus aureus (MRSA) screening culture NEG NRG CD3+CD4+ (T4 helper) cells/100 cells in blood - 09/29/18 06:20 Timed urine calcium measurement (mass/volume) 371 % < 250 Urine oxalate detection 49 < 45 Urine uric acid measurement (mass/volume) 524 % < 700 Urine citrate measurement (mass/volume) 1017 % > 320 Urine pH measurement 6.7 5.5-7.0 24 hour urine specimen volume measurement 2.77 % > 2.00 Sodium urate/total calculus mass ratio by infrared spectroscopy 228 % < 200 Sulfites [presence] in urine by test strip 18 < 30 Urine phosphate measurement (mass/volume) 1136 % < 1100 Urine magnesium measurement (mass/volume) 155 % > 60 Urine calcium oxalate measurement 1.96 < 2.00 Urine calcium phosphate crystals detection by computer assisted method 3.30 < 2.00 24 hour urine sodium urate (saturation fraction) 1.33 < 2.00 Triple phosphate crystals detection in urine sediment by light microscopy 3.14 < 75.00 24 hour urine uric acid (saturation fraction) 0.19 < 2.00 Urine ammonium measurement 34 % 14-62 Urine potassium measurement 39 % 19-135 24 hour urine creatinine measurement (mass/time) 2699 % 800-2000 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 Visit Date/Time Discharge Status Pt. Type Provider Facility Loc./Unit Complaint [id number] 11/04/2018 16:08:00 11/04/2018 23:59:59 CLS Outpatient RACHEL PATEL MD [facility] RAD BILATERAL URETERAL STONES [id number] 10/24/2018 09:07:00 10/24/2018 23:59:59 CLS Outpatient RACHEL PATEL MD [facility] RAD BI-LATERAL STONES [id number] 10/23/2018 14:58:00 10/23/2018 23:59:59 CLS Outpatient RACHEL PATEL MD [facility] RAD LT FLRANK PAIN, LT RENAL STONE [id number] 10/07/2018 14:19:00 10/07/2018 23:59:59 CLS Preadmit RACHEL PATEL MD [facility] CARD HYPER PARATHYROIDISM [id number] 09/24/2018 15:51:00 09/24/2018 23:59:59 CLS Outpatient RACHEL PATEL MD [facility] LAB STONES [id number] 09/24/2018 14:47:00 09/24/2018 23:59:59 CLS Outpatient RACHEL PATEL MD [facility] RAD LT URETERAL STONE [id number] 09/18/2018 12:30:00 09/18/2018 23:59:59 CLS Preadmit RACHEL PATEL MD [facility] CARD HYPERPARATHYROIDISM [id number] 09/10/2018 07:42:00 09/10/2018 14:20:00 DIS Outpatient RACHEL PATEL MD [facility] SDC RIGHT URETERAL AND LEFT RENAL STONE [id number] 09/09/2018 05:38:00 09/09/2018 12:19:00 DIS Outpatient RACHEL PATEL MD [facility] PREOP RT. URETEROSCOPY W/ STONE LITHO., POSS ESWL, [id number] 09/08/2018 13:50:00 09/08/2018 23:59:59 CLS Preadmit RACHEL PATEL MD [facility] CARD HYPERPARATHYROIDISM [id number] 09/04/2018 14:32:00 09/04/2018 23:59:59 CLS Outpatient RACHEL PATEL MD [facility] RAD RT UTERTRAL STONE [id number] 09/03/2018 08:13:00 09/03/2018 09:50:00 DIS Emergency SWETA JOE, REECE Newell [facility] ER R SIDE LOWER ABD PAIN
[2018-11-12] MEDS ORDERED: NS IV 500 ML 500 ML ONE ×2 (11:33→13:48)
[2018-11-12] MEDS ORDERED: LIDOCAINE JELLY 2% 6 ML SYRINGE MM PRN (11:45)
[2018-11-12] MEDS ORDERED: fentaNYL INJECTION 100 MCG/2 ML AMP IVP ONE (11:45)
[2018-11-12] MEDS ORDERED: MIDAZOLAM 2 MG/2 ML (VERSED) VIAL IVP ONE (11:45)
[2018-11-12] MEDS ORDERED: HURRICAINE EXT TUBE (BENZOCAINE) XX PRN (11:45)
[2018-11-12 11:50] VITALS: BP 138/54
[2018-11-12] MEDS: NS IV 500 ML 500 ML IV PRN ×2 (11:50→13:50)
--- NOTE | 2018-11-12 12:55 | Conscious Sedation/ASA ---
Conscious Sedation Pre-Proced Time 12:00 ASA Score 2 For ASA 3 and 4: Consider anesthesia and medical clearance. Also, for patients with a history of failed moderate sedation consider anesthesia. Airway Lungs Heart ASA score ASA 1: a normal healthy patient ASA 2: a patient with a mild systemic disease (mid diabetes, controlled hypertension, obesity ASA 3: a patient with a severe systemic disease that limits activity (angina , COPD, prior Myocardial infarction) ASA 4: a patient with an incapacitating disease that is a constant threat to life (CHF, renal failure) ASA 5: a moribund patient not expected to survive 24 hrs. (ruptured aneurysm) ASA 6: a declared brain- patient whose organs are being harvested. For emergent operations, add the letter E after the classification Mallampati Classification Grade 2 Sedation Plan Analgesia, Amnesia, Plan communicated to team members, Discussed options with patient/fam, Discussed risks with patient/fam The patient is an appropriate candidate to undergo the planned procedure, sedation, and anesthesia. The patient immediately re-assessed prior to indication. GIANNA FELICIANO MD November 12, 2018 12:55
--- NOTE | 2018-11-12 12:55 | Progress Note-Pre Operative ---
Pre-Operative Progress Note H&P Reviewed The H&P was reviewed, patient examined and no changes noted. Date Seen by Provider: November 12, 2018 Time Seen by Provider: 12:00 Date H&P Reviewed: November 12, 2018 Time H&P Reviewed: 12:00 Pre-Operative Diagnosis: dysphagia, GERD GIANNA FELICIANO MD November 12, 2018 12:55
[2018-11-12] MEDS ORDERED: PANT40TA2 PO (12:57)
--- NOTE | 2018-11-12 12:57 | Discharge Inst-Surgical ---
D/C Lap Instructions-KIDO New, Converted, or Re-Newed RX: RX on Chart Follow Up PRN Activity as tolerated High Fiber Diet 25g or more per day Avoid Alcohol, Caffeine, Spicy [place] and Acid foods. Drink 64 fluid oz or more of fluids per day. Symptoms to Report: Fever over 101 degree F, Nausea/Vomiting If any problems/questions: Contact your physician or go to Emergency Room GIANNA FELICIANO MD November 12, 2018 12:57
[2018-11-12] MEDS ORDERED: morphine INJ 10 MG/ML 1ML (SYR OR VIAL) IV PRN (13:00)
[2018-11-12] MEDS ORDERED: ONDANSETRON 4 MG/2 ML (SDV) Z0FRAN IV PRN (13:00)
[2018-11-12] MEDS ORDERED: HYDROcodone/APAP 5 MG/325 MG (LORTAB) TAB PO PRN (13:00)
[2018-11-12] MEDS ORDERED: ACETAMINOPHEN 325 MG TABLET PO PRN (13:00)
[2018-11-12] MEDS ORDERED: LIDOCAINE JELLY 2% 6 ML SYRINGE ONE (13:09)
[2018-11-12] MEDS ORDERED: fentaNYL INJECTION 100 MCG/2 ML AMP ONE ×2 (13:10→13:43)
[2018-11-12] MEDS ORDERED: HURRICAINE EXT TUBE (BENZOCAINE) ONE (13:10)
[2018-11-12] MEDS ORDERED: MIDAZOLAM 2 MG/2 ML (VERSED) VIAL ONE ×5 (13:10→13:34)
[2018-11-12] MEDS ORDERED: proPOfol 200 MG/20 ML (DIPRIVAN) VIAL IV ONE (13:48)
--- NOTE | 2018-11-12 14:14 | Anesthesia-Procedure Note ---
Procedures/Interventions Procedure Start/Stop/Diagnosis Date of Procedure: November 12, 2018 Start Time: 13:50 Referring Physician: Lovely Preprocedural Diagnosis: Dysphagia Brief History Called by endo for rescue sedation. Pt had received a total of 10mg Versed and 200 Mcg Fentanyl without adequate sedation for procedure. ASA 2. Monitors applied. O2 per FM at 10 lpm. Pt received a total of 120 mg Propofol in increments. Procedure completed without incident. VSS Report to RN. Stop Time: 14:10 Postprocedural Diagnosis: Dysphagia KIANNA KIM CRNA November 12, 2018 14:14
[2018-11-12 14:25] VITALS: BP 114/63
[2018-11-12 14:58] VITALS: BP 105/61
[2018-11-12 15:02] VITALS: BP 105/61
[2018-11-12] MEDS ORDERED: ONDANSETRON 4 MG (ZOFRAN) ORAL DISSOLVE TAB PO ONE (15:15)
--- NOTE | 2018-11-12 15:21 | Progress Note-Post Operative ---
Post-Operative Progess Note Surgeon (s)/Assistant Store Manager Trainee (s) Surgeon GIANNA FELICIANO MD Assistant Store Manager Trainee: none Pre-Operative Diagnosis dysphagia, GERD Post-Operative Diagnosis reflux esophagitis(2-3), mild distal esophageal stricture, small HH(1.5cm), moderate gastritis with 3 small antral ulcers(5mm). Procedure & Operative Findings Date of Procedure 11/12/18 Procedure Performed/Findings EGD with bx and balloon dilatation. Anesthesia Type MAC Estimated Blood Loss Estimated blood loss (mL): minimal Specimens/Packing Specimens Removed ge jxn, antrum GIANNA FELICIANO MD November 12, 2018 15:21
--- NOTE | 2018-11-12 23:44 | OPERATIVE REPORT ---
DATE OF SERVICE: 11/12/2018 ATTENDING PRIMARY CARE PHYSICIAN: Dr. Golden Herron. PREOPERATIVE DIAGNOSIS: Dysphagia. POSTOPERATIVE DIAGNOSES: Reflux esophagitis between stage II and III with a mild distal esophageal stricture, small hiatal hernia approximately 1.5 cm in size. There were three small antral ulcers each one approximately 5 mm in size and appeared benign. Pylorus and duodenum appeared normal. PROCEDURE: EGD with biopsy and balloon dilatation. SURGEON: Gianna Feliciano MD ANESTHESIA: Monitored anesthesia care. ESTIMATED BLOOD LOSS: Minimal. FINDINGS: As above in the postoperative diagnosis. DISPOSITION: The patient tolerated the procedure well. INDICATIONS: The patient is a 53-year-old male who was referred over to us for dysphagia. He just reports having difficulty swallowing for years; however, this was infrequent. 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 He also underwent radiation at that time. He states that he is able to swallow a cyst that he does feel substernal pressure sensation this allows him from drinking or eating anymore and eventually this was reduced on its own. He does not report any classic symptoms of epigastric burning sensation that would indicate any gastroesophageal reflux disease. DESCRIPTION OF PROCEDURE: The patient was brought to the endoscopy suite, laid in left lateral decubitus position. After adequate IV pain and sedative medications and monitored anesthesia care, the mouthpiece was applied. Endoscope was placed in the mouth, visualizing the pharynx and hypopharyngeal region. Vocal cords, epiglottis and vallecula identified and appeared to be normal. The endoscope was then gently intubated in the esophageal opening and esophagus insufflated. The endoscope was then advanced through the first, second and third portion of the esophagus. At the level of the GE junction, a reflux esophagitis between stage II and III identified. There was also a mild distal esophageal stricture and Schatzki's ring. Two biopsies were taken of this region using forceps with visualization of good hemostasis. The endoscope was then advanced in the stomach and endoscope retroflexed, visualizing a small hiatal hernia approximately 1.5 cm in size. There was a significant gastritis of the stomach antrum with three very small ulcerations with each one approximately 5 mm in size. A biopsy was taken of one of these to rule out H. pylori with visualization of good hemostasis. The endoscope was then advanced to the pylorus and the first and second portion of the duodenum, which appeared normal and no distal obstructions. We then proceeded with a balloon dilatation of the lower esophageal sphincter. The balloon was placed in the stomach and pulled back to the area of stricture and first insufflated to 2 atmospheres of pressure with no resistance. We then proceeded to 4 atmospheres of pressure with minimal resistance. We then proceeded to 6 atmospheres of pressure 20 mm in luminal diameter with a mild to moderate resistance and left this in place for approximately 60 seconds. The balloon was then removed with visualization of good hemostasis as well as no mucosal tears. The endoscope was then slowly withdrawn with taking a second look and suctioning of residual air with no additional findings. The patient tolerated the procedure well. We will recommend the necessary lifestyle and diet accommodation including small and more frequent meals, avoidance of eating at night as well as head elevation while lying supine. He also needs to avoid caffeinated beverages, spicy, greasy and acidic foods. Due to his significant gastritis as well as reflux esophagitis, we will start him on Protonix 40 mg daily as well as Carafate 1 gram q.i.d. for the next 2 weeks then on a p.r.n. basis. Job ID: [id number] DocumentID: [id number] Dictated Date: 11/12/2018 14:17:10 Engine Designer Date: 11/12/2018 23:43:56 Dictated By: GIANNA FELICIANO MD
== END 2018-11-12 15:25 | disposition home or self-care (01) ==
LOC: ENDO 11:17
PROVIDERS: ATTEND Surgery
DX: K21.0 Gastro-esophageal reflux disease with esophagitis (principal); K22.2 Esophageal obstruction; K44.9 Diaphragmatic hernia without obstruction or gangrene; K25.9 Gastric ulcer, unspecified as acute or chronic, without hemorrhage or perforation; M10.9 Gout, unspecified; L65.9 Nonscarring hair loss, unspecified; Z85.858 Personal history of malignant neoplasm of other endocrine glands; Z80.52 Family history of malignant neoplasm of bladder; Z79.899 Other long term (current) drug therapy

== ENCOUNTER 2022-10-10 10:35 | Outpatient (CLI) | payer BC ==
[~2022-10-10] VITALS: Ht 188 cm; Wt 115.9 kg
[~2022-10-10 10:35] MED LIST changes: +PANT40TA2 PO; -TAMS0.4C98 PO; +TMSL.4C PO
[2022-10-11] MEDS ORDERED: HYDR-3817 PO (12:22)
== END 2022-10-10 15:04 | disposition home or self-care (01) ==
LOC: PREOP 10:35
PROVIDERS: ATTEND Surgery
DX: Z01.818 Encounter for other preprocedural examination (principal)

== ENCOUNTER 2022-10-11 12:12 | Day surgery (SDC) | payer BC ==
[2022-10-11] VITALS (14 sets, daily range): BP systolic 124–138; BP diastolic 76–98
[~2022-10-11] VITALS: Ht 188 cm; Wt 115.9 kg
--- NOTE | 2022-10-11 12:20 | Progress Note-Pre Operative ---
Pre-Operative Progress Note Date of Available H&P: Oct 11, 2022 Date H&P Reviewed: Oct 11, 2022 Time H&P Reviewed: 12:00 History & Physical: No changes noted Pre-Operative Diagnosis: ventral abd inc hernia GIANNA FELICIANO MD Oct 11, 2022 12:20
[2022-10-11] MEDS ORDERED: HYDR-3817 PO (12:22)
--- NOTE | 2022-10-11 12:23 | Discharge Inst-Surgical ---
D/C Lap Instructions-BRADEN New, Converted, or Re-Newed RX: RX on Chart Follow Up Appt in 2 weeks Activity as tolerated No driving for 24 hours No [address] while on pain medications Incentive Spirometry use every 2 hours while awake Regular Diet Symptoms to Report: Fever over 101 degree F, Nausea/Vomiting Infection Signs and Symptoms to report: Increased redness, Foul odor of wound, Increased drainage Bathing instructions: May shower Operative Area Clean/Dry; Keep incision clean/dry If any problems/questions: Contact your physician or go to Emergency Room GIANNA FELICIANO MD Oct 11, 2022 12:23
[2022-10-11] MEDS ORDERED: ACETAMINOPHEN 325 MG TABLET PO PRN (12:30)
[2022-10-11] MEDS ORDERED: morphine INJ 10 MG/ML 1ML (SYR OR VIAL) IVP PRN ×2 (12:30)
[2022-10-11] MEDS ORDERED: ONDANSETRON 4 MG/2 ML (SDV) Z0FRAN IVP PRN (12:30)
[2022-10-11] MEDS ORDERED: oxyCODONE/APAP 5/325MG (PERCOCET 5) TABLET PO PRN (12:30)
[2022-10-11] MEDS ORDERED: ceFAZolin INJECTION 2,000 MG in NS (IVPB) 50 ML IV ONE (12:45)
[2022-10-11] MEDS ORDERED: BUP/EPI 0.5% 1:200,000 (SENSORCAINE) 30 ML VIAL ONE (12:52)
[2022-10-11] MEDS ORDERED: proPOfol 200 MG/20 ML (DIPRIVAN) VIAL IV ONE ×2 (12:53→13:47)
[2022-10-11] MEDS ORDERED: LIDOCAINE PF 2% 5 ML (XYLOCAINE) VIAL ONE (12:53)
[2022-10-11] MEDS ORDERED: fentaNYL INJ 100 MCG/2 ML AMP ONE (12:53)
[2022-10-11] MEDS ORDERED: MIDAZOLAM 2 MG/2 ML (VERSED) VIAL ONE (12:53)
[2022-10-11] MEDS ORDERED: ONDANSETRON 4 MG/2 ML (SDV) Z0FRAN ONE (12:53)
[2022-10-11] MEDS ORDERED: SEVOFLURANE (ULTANE) 15 ML INHAL SOLN ONE ×2 (12:53→14:29)
[2022-10-11] MEDS: LACTATED RINGERS 1,000 ML IV PRN ×2 (12:59→14:48)
[2022-10-11] MEDS ORDERED: ceFAZolin INJECTION 2,000 MG ONE (13:06)
[2022-10-11] MEDS ORDERED: NS (IVPB) 50 ML ONE (13:07)
[2022-10-11] MEDS ORDERED: ROCURONIUM 50 MG/5 ML (ZEMURON) VIAL IV ONE (13:47)
[2022-10-11] MEDS ORDERED: NEOSTIGMINE 3 MG/3 ML VIAL ONE (14:19)
[2022-10-11] MEDS ORDERED: GLYCOPYRROLATE 0.2 MG/ML (ROBINUL) 2 ML VIAL ONE (14:19)
[2022-10-11] MEDS ORDERED: KETOROLAC 30 MG/ML VIAL ONE (14:20)
--- NOTE | 2022-10-11 14:40 | Anesthesia-General Post-Op ---
General Patient Condition Mental Status/LOC: Same as Preop Cardiovascular: Satisfactory Nausea/Vomiting: Absent Respiratory: Satisfactory Pain: Controlled Complications: Absent Post Op Complications Complications None Follow Up Care/Instructions Patient Instructions None needed. Anesthesia/Patient Condition Patient Condition Patient is doing well, no complaints, stable vital signs, no apparent adverse anesthesia problems. No complications reported per nursing. D/C home per [facility] [place] Criteria: Yes KIANNA KIM CRNA Oct 11, 2022 14:40
[2022-10-11] MEDS ORDERED: HYDROmorphone 2 MG/ML VIAL (DILAUDID) IV ONE (14:45)
--- NOTE | 2022-10-11 14:45 | Progress Note-Post Operative ---
Post-Operative Progess Note Surgeon (s)/Striper Machine (s) Surgeon GIANNA FELICIANO MD Striper Machine: antwon dennis HEARING HEALTH TECHNICIAN Pre-Operative Diagnosis ventral abd inc hernia Post-Operative Diagnosis incacerated ventral abd inc herna, 1.5cm Procedure & Operative Findings Date of Procedure 10/11/22 Procedure Performed/Findings open incarcerated ventral abd inc hernia repair with mesh. Anesthesia Type get Estimated Blood Loss Estimated blood loss (mL): minimal Specimens/Packing Specimens Removed none GIANNA FELICIANO MD Oct 11, 2022 14:45
[2022-10-11] MEDS ORDERED: LACTATED RINGERS 1,000 ML IV ONE (14:47)
[2022-10-11] MEDS: ONDANSETRON 4 MG/2 ML (SDV) Z0FRAN IVP PRN ×2 (15:16→15:41)
--- NOTE | 2022-10-11 19:57 | OPERATIVE REPORT ---
DATE OF SERVICE: 10/11/2022 ATTENDING PRIMARY CARE PHYSICIAN: Dr. Goledn Herron. PREOPERATIVE DIAGNOSIS: Incarcerated ventral abdominal incisional hernia. POSTOPERATIVE DIAGNOSIS: Incarcerated ventral abdominal incisional hernia with omentum within the hernia sac. PROCEDURE: Open incarcerated ventral abdominal incisional hernia repair with mesh. SURGEON: Dr. Feliciano. COMMUNICATIONS SENIOR ASSOCIATE: Miguel Wilcox APRN ANESTHESIA: General endotracheal. ESTIMATED BLOOD LOSS: Minimal. FINDINGS: Omentum within the hernia sac fascial defect with supraumbilical in approximately 1.5 cm in size. DISPOSITION: The patient tolerated the procedure well. INDICATIONS: The patient is a 57-year-old male who developed an outpouching in the supraumbilical region several months ago. He states that at that time, he was coughing quite a bit and then noticed a lesion, which has grown larger in size and become painful. He was seen in the office and found to have a supraumbilical incarcerated ventral abdominal incisional hernia, which is tender to palpation. He had a previous umbilical hernia repair in the region approximately in 2001. He is otherwise eating well and having normal bowel movements. DESCRIPTION OF PROCEDURE: The patient was brought to the operating room, laid supine on the table. After adequate IV pain and sedative medications and general endotracheal intubation, the abdomen was prepped and draped in standard surgical fashion. A 0.5% Marcaine with epinephrine was then used to anesthetize the overlying skin supraumbilically. A crescent-shaped skin incision was then made using a #15 blade. Subcutaneous tissue was then dissected using electrocautery. The hernia sac was identified and dissected out using blunt dissection as well as electrocautery to the fascial base. The hernia sac was then opened with Metzenbaum scissors with only omentum within the hernia sac, which was reduced back into the peritoneal cavity. The hernia sac was then excised under direct visualization using electrocautery. The fascial defect was approximately 1.5 cm in size and a 6.4 round coated polypropylene mesh was then placed into the defect and sutured transfascially in a concentric manner to the mesh using 0 Prolene interrupted sutures. Good hemostasis was observed. The subcutaneous tissue was then reapproximated using 3-0 Vicryl interrupted suture. Skin was closed using 4-0 Monocryl running subcuticular suture. Wound was then cleaned and covered with Dermabond, followed by tonsil sponges, 4 x 4 gauze, Op-Site and then abdominal binder. The patient tolerated the procedure well. He will be instructed to keep the pressure dressing on for the next 5 days and then remove. We will also instruct him to continue to wear the abdominal binder both day and night for the next 2 weeks. He will also be instructed to do no heavy lifting or exertion for the next 2 weeks. Job ID: [id number] DocumentID: [id number] Dictated Date: 10/11/2022 14:52:33 Chief Operator Hydroformer Date: 10/11/2022 19:55:00 Dictated By: GIANNA FELICIANO MD
== END 2022-10-11 18:30 ==
LOC: SDC 12:12
PROVIDERS: ATTEND Surgery
DX: K43.0 Incisional hernia with obstruction, without gangrene (principal)
CPT/HCPCS: 49592; 87081; C1781